=== PATIENT | male | born 1985 | race Caucasian/White ===

== ENCOUNTER → 2022-11-25 09:29 | Outpatient (BNVA) | payer BC, SELFPAY | PROVIDERS: Referring Provider Emergency Medicine; Visit Provider Nurse Practitioner Family | DX: S89.92XA Unspecified injury of left lower leg, initial encounter (principal); W17.2XXA Fall into hole, initial encounter | CPT/HCPCS: 73562 ==

== ENCOUNTER 2022-11-25 11:12 | Outpatient (CLI) | payer BC, MEDICAID, SELFPAY | END 2022-11-25 11:13 | disposition home or self-care (01) | LOC: SPT 11:14 | PROVIDERS: Visit Provider Nurse Practitioner Family | DX: Z46.89 Encounter for fitting and adjustment of other specified devices (principal); M25.562 Pain in left knee; S89.92XA Unspecified injury of left lower leg, initial encounter; W17.2XXA Fall into hole, initial encounter | CPT/HCPCS: 97760; 99214; L1812 ==

== ENCOUNTER 2022-12-16 08:10 | Outpatient (CLI) | payer BC, MEDICAID, SELFPAY ==
--- NOTE | 2022-12-16 08:00 | MR_ITS ---
WS: [id number] MRI LEFT KNEE NONCONTRAST TECHNIQUE: Axial PD, coronal PD fat sat, coronal PD, sagittal PD, and sagittal PD fat-sat images obta ined. CLINICAL INFORMATION: pain COMPARISON: None. FINDINGS: Distal quadriceps and patella tendons are intact. Normal ACL and PCL. Mild chronic thinning of the me dial and lateral meniscus. Lateral subluxation of the patella relative to the trochlear groove. Media l and lateral patellar retinacula appear intact. Recommend correlation for patellar instability. Some of this may be due to positioning. Mild diffuse edema involving the posterior lateral tibial plateau. Fluid and edema deep to the anteri or ligament of the fibula head. Fluid and edema deep to the lateral collateral ligament complex dista lly and along the myotendinous junction of the popliteus. Peripheral extrusion of the lateral meniscu s with suspected capsular meniscal tear. Recommend correlation for posterolateral corner injury. Norm al fibula head. Small amount of contusion in the posterior medial tibial plateau. MR/MR knee LT wo con* [id number] IMPRESSION: 1. Fluid and edema deep to the lateral collateral ligament complex distally muhammad spicious for posterolateral corner injury. Recommend clinical correlation. 2. Edema in the posterior lateral and posterior medial tibial plateau. 3. Peripheral extrusion lateral meniscus suspicious for lateral capsular tear. 4. ACL and PCL appear intact. 5. Lateral subluxation of the patella. Recommend correlation for patellar inst ability. [facility] grading: grade II: blister-like swelling/fraying of articular cartila ge extending to surface
== END 2022-12-16 08:11 | disposition home or self-care (01) ==
PROVIDERS: PCP Nurse Practitioner Family; Visit Provider Nurse Practitioner Family
DX: M25.562 Pain in left knee (principal); R60.0 Localized edema; R93.6 Abnormal findings on diagnostic imaging of limbs
CPT/HCPCS: 73721